=== PATIENT | male | born 1975 | race African-American/Black ===

== ENCOUNTER → 2017-05-10 | Day surgery (SDC) | payer OTHER ==
[~2017-05-10] MED LIST: ALLOPURINOL300 MG PO; BP PILL PO; FLEXERIL PO; GABAPENTIN300 MG PO; LISINOPRIL10 MG PO
--- NOTE | ~2017-05-10 | OR ---
Unit #: [id number] #: [id number] Patient: JOHN GLASER [id number] [address] [address] [id number] O MR#: [id number] NAME: JOHN GLASER ROOM: Date of Procedure: 05/10/2017 Admission Date: 05/10/2017 Surgeon: Joseph Goins M.D. : 1975 Attending Physician: Joseph Goins M.D. Primary Care Physician: Karen Danielson M.D. OPERATIVE REPORT JOB NOTE: VERIFY CC PROCEDURES PERFORMED Esophagogastroduodenoscopy with biopsy and colonoscopy with cecum. INDICATIONS FOR PROCEDURE The patient with recurrent blood in the stool, anemia of chronic blood loss, undergoing evaluation of upper endoscopy and colonoscopy. MEDICATIONS Monitored anesthesia. POSTOPERATIVE FINDINGS 1. EGD shows normal esophagus. 2. Mild gastritis. 3. Normal duodenum and distal duodenum. 4. Colonoscopy completely normal to cecum. 5. Good prep. 6. Small hemorrhoids. PLAN Symptomatic treatment. Watch for any further bleeding. DESCRIPTION OF PROCEDURE The patient was explained of the procedure, risks, and benefits along with risks and benefits of anesthesia. He was brought to the endoscopy room. Propofol anesthesia was given. Bite block was placed. The scope was passed down the mouth into esophagus, stomach, duodenum, and distal duodenum. Findings as described. Biopsies taken. Gently, I pulled it out of the patient's mouth. He tolerated this part very well. At this time, he was turned around and repositioned for colonoscopy. Rectal exam was done, which was normal. Colonoscope was lubricated, passed up the rectum, advanced under direct vision all the way to the cecum. Cecum was identified by ileocecal valve and appendiceal orifice. I then started to pull the scope out carefully looking. No polyps, masses, or colitis was seen. Mucosa was normal and healthy. I retroflexed in the rectum, small hemorrhoids seen. The scope was gently pulled out. He tolerated it well. No major complications were seen. Unit #: [id number] #: [id number] Patient: JOHN GLASER Dictated by... Cr Evans/abdirizak TD: 05/11/2017 17:55 JOB #: [id number] OPERATIVE REPORT Page 1 of 1 X Joseph Goins MD PROCEDURE OPERATIVE NOTE
[2017-05-10 12:34] LABS: BASOPHIL# 0.1 X10e3 (0-0.3); BASOPHIL% 0.8 % (0-2.5); DIFF IND NO; EOSINOPHIL# 0.4 X10e3 (0-0.7); EOSINOPHIL% 3.8 % (0.0-7.0); HEMATOCRIT 37.9 % (38.0-50.0); HEMOGLOBIN 12.1 gm/dL (13.0-16.0); LYMPHOCYTE# 2.5 X10e3 (1.0-3.5); LYMPHOCYTE% 21.6 % (17.0-45.0); MEAN CELL VOLUME 92.4 FL (83-96); MEAN CORPUSCULAR HEMOGLOBIN 29.6 PG (28-34); MEAN CORPUSCULAR HGB CONC 32.1 g/dL (30-36); MEAN PLATELET VOLUME 7.8 FL (6.5-11.5); MONOCYTE# 0.8 X10e3 (0-1.0); MONOCYTE% 6.9 % (3.0-12.0); NEUTROPHIL# 7.8 X10e3 (1.5-7.1); NEUTROPHIL% 66.9 % (40-75); PLATELET COUNT 327 X10e3 (140-420); RED CELL DISTRIBUTION WIDTH 14.5 % (11.0-15.5); WHITE BLOOD COUNT 11.7 X10e3 (4.0-10.5)
[2017-05-10 13:03] LABS: ALBUMIN SERUM 3.4 g/dL (3.5-5.0); BILIRUBIN,TOTAL 0.3 mg/dL (0.2-2.0); BUN/CREATININE RATIO 12.5; CALCIUM SERUM 9.1 mg/dL (8.4-10.2); CREATININE SERUM 0.8 mg/dL (0.6-1.4); GLOM FILT RATE Estimated 128.7 mL/min (>60); POTASSIUM 4.2 mmol/L (3.5-5.1); PROTEIN TOTAL SERUM 6.7 g/dL (6.0-8.3)
== END | disposition home or self-care (01) ==
LOC: COPS 09:30
PROVIDERS: Internal Medicine
DX: K29.50 Unspecified chronic gastritis without bleeding (principal); K64.9 Unspecified hemorrhoids; D50.0 Iron deficiency anemia secondary to blood loss (chronic); I10 Essential (primary) hypertension; E66.01 Morbid (severe) obesity due to excess calories; M10.9 Gout, unspecified; K21.9 Gastro-esophageal reflux disease without esophagitis; Z79.899 Other long term (current) drug therapy
CPT/HCPCS: 80053; 82607; 82728; 82746; 83540; 84466; 85025; 88305; 88312